=== PATIENT | male | born 1950 | race African-American/Black ===

== ENCOUNTER 2018-12-09 13:10 | Emergency (ER) | payer MEDICARE, OTHER ==
[~2018-12-09] VITALS: Ht 180.3 cm; Wt 95.0 kg
[2018-12-09] MEDS ORDERED: KETOROLAC 30MG/ML VIAL IV STA (14:40)
[2018-12-09] MEDS ORDERED: SODIUM CHLORIDE 0.9% 1,000 ML IV ONE (14:40)
[2018-12-09] MEDS ORDERED: ACETAMINOPHEN 325MG TABLET PO ONE (14:45)
[2018-12-09 15:47] VITALS: BP 150/98
== END 2018-12-09 15:48 | disposition home or self-care (01) ==
LOC: ER 13:10
DX: M54.5 Low back pain (principal); M25.561 Pain in right knee; I10 Essential (primary) hypertension; E11.9 Type 2 diabetes mellitus without complications; V49.49XA Driver injured in collision with other motor vehicles in traffic accident, initial encounter; Y93.89 Activity, other specified; Y92.89 Other specified places as the place of occurrence of the external cause; Y99.8 Other external cause status
CPT/HCPCS: 72100; 73562; 99283; J7030